=== PATIENT | male | born 1960 | race Caucasian/White ===

== ENCOUNTER → 2016-05-13 | Outpatient (CLI) | payer BC | END | disposition home or self-care (01) | LOC: C.LABPVFM 11:49 | PROVIDERS: ATTEND Family Medicine | DX: M10.9 Gout, unspecified (principal) ==

== ENCOUNTER → 2016-07-13 | Outpatient (CLI) | payer BC ==
--- NOTE | 2016-07-13 10:24 | DIAGNOSTIC IMAGING REPORT ---
RIGHT FOOT 3 VIEWS HISTORY: M10.9 GoutM25.579 Painful [id number] Foot pain, [id number] Right COMPARISON: None. FINDINGS: There is no fracture or dislocation. Soft tissues are unremarkable. Posterior calcaneal spur. No erosions identified. Punctate ossific density adjacent to the lateral base of the proximal facet 4 toe may be due to an old injury. Mild osteoarthritis at the first MTP joint and DIP and PIP joints. IMPRESSION: Mild osteoarthritis within the right foot. No radiographic evidence for inflammatory arthritis at this time. Electronically signed by: Reid Barnes M.D. 07/13/2016 10:21 AM Dictated Date/Time: 07/13/2016 10:19 AM
--- NOTE | 2016-07-13 10:28 | DIAGNOSTIC IMAGING REPORT ---
LEFT ANKLE 3 VIEWS HISTORY: M10.9 GoutM25.579 Painful [id number] Foot pain, bilateral am COMPARISON: None. FINDINGS: There is no fracture or dislocation. Soft tissues are unremarkable. Incidental note is made of an os trigonum. There are tiny posterior and plantar calcaneal spurs. Irregularity at the dorsal to the anterior talus favors old avulsion type injuries. No erosions identified. There is mild cartilage space narrowing within the medial aspect of the ankle joint with small marginal osteophytes. This is consistent with degenerative change. IMPRESSION: Mild osteoarthritis within the left ankle. No fractures. Electronically signed by: Reid Barnes M.D. 07/13/2016 10:26 AM Dictated Date/Time: 07/13/2016 10:24 AM
--- NOTE | 2016-07-13 11:01 | DIAGNOSTIC IMAGING REPORT ---
LEFT FOOT 3 VIEWS CLINICAL HISTORY: Gout. Foot pain. FINDINGS: 3 views of left foot are obtained. No prior studies are available for comparison at the time of dictation. The skeletal structures are osteopenic. No fracture is seen. There is arthritic change with mild overgrowth seen at the first metatarsophalangeal joints. No bony erosion is identified. The joint spaces of the foot are otherwise preserved. Dorsal and plantar calcaneal enthesophytes are identified. Degenerative spurring is seen along the dorsal aspect of the tarsal bones. A large os trigonum is incidentally noted. The overlying soft tissues are within normal limits. No soft tissue calcifications are suspected. IMPRESSION: 1. Osteopenia with arthritic change and heel spurs as above. No acute bony abnormality is seen. 2. There is no radiographic evidence of an erosive arthropathy. Electronically signed by: Og Schwartz M.D. 07/13/2016 10:58 AM Dictated Date/Time: 07/13/2016 10:57 AM
[2016-07-13 12:20] LABS: BASO % 0.2 %; BASO ABS # 0.02 K/uL (0-0.2); COMPLETE YES; EOS % 1.8 %; HEMATOCRIT 42.8 % (42-52); IG% 0.1 %; LYMPH % 22.6 %; LYMPH ABS # 1.91 K/uL (1.2-3.4); MEAN CELL VOLUME 87.3 fL (80-100); MEAN CORPUSCULAR HGB CONC 35.5 g/dl (32-36); MEAN PLATELET VOLUME 10.2 fL (7.4-10.4); MONO % 7.9 %; NEUT % 67.4 %; PLATELET COUNT 180 K/uL (130-400); WHITE BLOOD COUNT 8.46 K/uL (4.8-10.8)
[2016-07-13 12:48] LABS: ALKALINE PHOSPHATASE 64 U/L (45-117); ALT/SGPT 30 U/L (12-78); AST/SGOT 15 U/L (15-37); BLOOD UREA NITROGEN 15 mg/dl (7-18); CALCIUM 9.8 mg/dl (8.5-10.1); CARBON DIOXIDE 27 mmol/L (21-32); CHLORIDE 104 mmol/L (98-107); GLUCOSE 93 mg/dl (70-99); POTASSIUM 3.8 mmol/L (3.5-5.1); RHEUMATOID FACTOR < 10.0 U/mL (0-15); SODIUM 140 mmol/L (136-145); TOTAL IRON BINDING CAPACITY 265 mcg/dl (250-450); URIC ACID 6.3 mg/dl (2.6-7.2)
[2016-07-13 12:56] LABS: ALB/GLOB RATIO 1.1 (0.9-2)
== END | disposition home or self-care (01) ==
LOC: C.RAD1850 09:27
PROVIDERS: ATTEND Internal Medicine Rheumatology
DX: M79.671 Pain in right foot (principal); M79.672 Pain in left foot; M10.9 Gout, unspecified; M25.579 Pain in unspecified ankle and joints of unspecified foot; E78.5 Hyperlipidemia, unspecified; E03.9 Hypothyroidism, unspecified; M85.872 Other specified disorders of bone density and structure, left ankle and foot; M77.32 Calcaneal spur, left foot

== ENCOUNTER → 2017-06-22 | Outpatient (CLI) | payer BC ==
[2017-06-22 14:12] LABS: URIC ACID 6.1 mg/dl (2.6-7.2)
== END | disposition home or self-care (01) ==
LOC: C.LABPVFM 10:25
PROVIDERS: ATTEND Family Medicine
DX: E78.5 Hyperlipidemia, unspecified (principal); M10.9 Gout, unspecified; E79.0 Hyperuricemia without signs of inflammatory arthritis and tophaceous disease; Z11.59 Encounter for screening for other viral diseases; E03.9 Hypothyroidism, unspecified